=== PATIENT | male | born 1990 | race Caucasian/White ===

== ENCOUNTER 2016-09-19 11:01 | Emergency (ER) | payer SELFPAY ==
[2016-09-19] MEDS ORDERED: HYDROcodone/Acetaminophen 10/325 mg Tablet ONE (11:22)
[2016-09-19] MEDS ORDERED: Naproxen 500 MG TAB ONE (11:24)
[2016-09-19] MEDS ORDERED: AMOXicillin 250 MG CAP ONE (11:24)
== END 2016-09-19 11:30 | disposition home or self-care (01) ==
LOC: MADERS 11:01
DX: K04.7 Periapical abscess without sinus (principal); L03.211 Cellulitis of face
CPT/HCPCS: 99282

== ENCOUNTER 2019-06-08 17:49 | Emergency (ER) | payer SELFPAY | END 2019-06-08 18:20 | disposition home or self-care (01) | LOC: MADERS 17:49 | DX: K02.9 Dental caries, unspecified (principal) | CPT/HCPCS: 99281 ==